=== PATIENT | male | born 1935 | race Caucasian/White ===

== ENCOUNTER 2017-02-07 09:10 | Day surgery (SDC) | payer MEDICARE, BC ==
[~2017-02-07 09:10] MED LIST: Buffered Lidocaine 0.9% SYRIN* 5 ML/SYR SYRINGE INTRADERM ONE
[2017-02-07] MEDS ORDERED: Buffered Lidocaine 0.9% SYRIN* 5 ML/SYR SYRINGE ONE (09:16)
[2017-02-07] MEDS ORDERED: ceFAZolin 2 GM PREMIX(*) 2 GM/50 ML BAG IVPB ONE (09:16)
[2017-02-07] MEDS ORDERED: Dexamethasone IV* 4 MG/ML 1 ML (4 MG) ONE (10:16)
[2017-02-07] MEDS ORDERED: Bupivacaine 0.25% SDV* 30 ML ONE (10:17)
[2017-02-07] MEDS ORDERED: Lidocaine 1% INJ* 10 MG/ML 30 ML SDV ONE (10:17)
[2017-02-07] MEDS ORDERED: Propofol* 10 MG/ML 20 ML BTL IV PUSH ONE ×2 (10:28→11:05)
[2017-02-07] MEDS ORDERED: fentaNYL* 50 MCG/ML 2 ML VIAL (100 MCG VIAL) ONE (10:28)
[2017-02-07 14:03] VITALS: BP 129/64
--- NOTE | 2017-02-08 16:15 | OP ---
DATE OF OPERATION: 02/07/17 [facility] DATE OF : 35. SURGEON: Dr. Willie Shanks. ANESTHESIOLOGIST: Ryan Lyman MD ANESTHESIA: MAC local. PRE-OP DIAGNOSIS: Osteomyelitis, left third toe. POST-OP DIAGNOSIS: Osteomyelitis, left third toe. OPERATIVE PROCEDURE: Amputation of distal portion of the left third toe. ESTIMATED BLOOD LOSS: Less than 10 cc. IV FLUIDS: LR 1000 cc. DRAINS: None. SPECIMENS: A combination of tissue culture as well as bone to pathology for microscopic examination. DESCRIPTION OF PROCEDURE: The patient was taken to the operating room, was placed in supine position. Time-out was called and OR team agreed. The left foot was then blocked with 4 cc of 1% lidocaine plain in a ring-block fashion at the base of the toe. The foot was then prepped and draped in a sterile manner. The left foot was exsanguinated with an Esmarch bandage and the cuff was then inflated to 250 mmHg. Attention was then paid to the distal tip of the left third toe. I then proceeded to make a fishmouth incision and just followed by sharp and blunt dissection down to bone. Once I got to the distal interphalangeal joint of the toe, the toe was amputated at that level. I also removed portions of the head of the middle phalanx and should be sent for pathological for microscopic examination as well. This completed the procedure. The toe was then irrigated with saline and closed in a layered anatomical fashion. The foot was then placed in dry sterile dressing. The patient tolerated the procedure well and discharged in stable condition. [id number]/[facility] #: [id number] [facility]
== END 2017-02-07 12:40 | disposition home or self-care (01) ==
LOC: OR 09:10
PROVIDERS: ATTEND Podiatrist
DX: M86.672 Other chronic osteomyelitis, left ankle and foot (principal); Z86.718 Personal history of other venous thrombosis and embolism; N18.3 Chronic kidney disease, stage 3 (moderate); I12.9 Hypertensive chronic kidney disease with stage 1 through stage 4 chronic kidney disease, or unspecified chronic kidney disease
CPT/HCPCS: 87070; 87073; 87077; 87186; 87205; J0690; J1100; J2001; J2704; J3010

== ENCOUNTER 2017-09-19 08:58 | Day surgery (SDC) | payer MEDICARE, BC ==
[~2017-09-19 08:58] MED LIST changes: +Famotidine IV* 10 MG/ML 2 ML (20 mg) IV ONE; +Sodium Citrate/Citric Acid* 15 ML UDC PO ONE
[2017-09-19] MEDS ORDERED: Sodium Citrate/Citric Acid* 15 ML UDC ONE (09:04)
[2017-09-19] MEDS ORDERED: Famotidine IV* 10 MG/ML 2 ML (20 mg) ONE (09:04)
[2017-09-19] MEDS ORDERED: ceFAZolin 2 GM in 100 MLS NS (*) BAG IVPB ONE (09:05)
[2017-09-19] MEDS ORDERED: Buffered Lidocaine 0.9% SYRIN* 5 ML/SYR SYRINGE ONE (09:05)
[2017-09-19] MEDS ORDERED: Lidocaine 2% PF * 5 ML VIAL ONE (09:24)
[2017-09-19] MEDS ORDERED: Propofol* 500 MG/50 ML BTL ONE (09:24)
[2017-09-19] MEDS ORDERED: fentaNYL* 50 MCG/ML 2 ML VIAL (100 MCG VIAL) ONE (09:38)
[2017-09-19] MEDS ORDERED: Midazolam* 1 MG/ML 2 ML VIAL (2 MG) ONE (09:38)
[2017-09-19] MEDS ORDERED: Bupivacaine 0.25% SDV* 30 ML ONE (09:59)
[2017-09-19] MEDS ORDERED: Lidocaine 1% INJ* 10 MG/ML 30 ML SDV ONE (09:59)
[2017-09-19] MEDS ORDERED: Dexamethasone IV* 4 MG/ML 1 ML (4 MG) ONE (09:59)
[2017-09-19] MEDS ORDERED: oxyCODONE/Acetamin 5/325 MG* TAB PO PRN (10:38)
[2017-09-19] MEDS ORDERED: Ibuprofen TAB* 600 MG PO PRN (10:38)
[2017-09-19] MEDS ORDERED: fentaNYL* 50 MCG/ML 2 ML VIAL (100 MCG VIAL) IV PRN (10:38)
[2017-09-19] MEDS ORDERED: PROCHLORPERAZINE INJ 5 MG/ML 2 ML VIAL IV PRN (10:38)
[2017-09-19] MEDS ORDERED: Ondansetron INJ* 2 MG/ML VIAL IV PRN (10:38)
[2017-09-19] MEDS ORDERED: HYDROmorphone INJ* 1 MG/ML CARPUJECT SYRINGE IV PRN (10:38)
[2017-09-19] MEDS ORDERED: oxyCODONE TAB* 5 MG TAB PO PRN (10:38)
[2017-09-19] MEDS ORDERED: Naloxone* 0.4 MG/ML 1 ML VIAL IV PRN (10:38)
[2017-09-19 12:24] VITALS: BP 147/78
--- NOTE | 2017-09-20 12:35 | OP ---
DATE OF OPERATION: 09/19/17 - [facility] DATE OF : 35 SURGEON: Willie Shanks DPM ANESTHESIA: MAC local. PRE-OP DIAGNOSIS: Left fourth toe ulcer and osteomyelitis and left fifth hammertoe. POST-OP DIAGNOSIS: Left fourth toe ulcer and osteomyelitis and left fifth hammertoe. OPERATIVE PROCEDURE: Partial amputation of the left fourth toe and arthroplasty of the left fifth toe. ESTIMATED BLOOD LOSS: Less than 10 cc. IV FLUIDS: LR 100 cc. DRAINS: None. SPECIMENS: Bone as well as distal amputation of the fourth toe. DESCRIPTION OF PROCEDURE: The patient was taken to the operating room and was placed in the supine position. Time-out was called and OR team agreed. The left foot was then blocked with 4 cc of 1% lidocaine plain to the base of the fourth toe and another 4 cc to the base of the fifth toe. The foot was then prepped and draped in a sterile manner. The left foot was then exsanguinated with an Esmarch bandage and the cuff was inflated to 250 mmHg. Attention was then paid initially to the left fourth toe where there was an ulcer as well as osteomyelitis of the distal phalanx of the fourth toe. I made a fishmouth incision and it was taken down to the soft tissue tendons and down to the bone at the level of the distal tip of the toe. This was followed by sharp and blunt dissection, starting from the epidermis, dermis, subcutaneous tissue down to deep fascia and tendon and down to the joint. I identified the distal interphalangeal joint. I dissected a little bit proximal to that approximately mid way through the middle phalanx. I then used a sagittal saw to remove the distal portion of the toe at the level of the middle portion of the middle phalanx. Once I was able to remove it, I irrigated the site and closed the fishmouth incision with a combination of absorbable Vicryl as well as 4-0 nylon. Attention was then paid to the left fifth toe where there was an adductovarus deformity with a hammertoe to that toe. I made a semi-elliptical wedge type of incision over the proximal interphalangeal joint area. I removed the wedge of skin. The wedge of skin was in a dorsal medial to plantar lateral direction. I went ahead and dissected down to the proximal interphalangeal joint. I went ahead and remove the head of the proximal phalanx. This created enough relaxation of the toe. I was able to reduce the hammertoe deformity as well as the adductovarus deformity. When I closed the semi-elliptical skin defect, I closed with a combination of a 3-0 Vicryl and 4-0 nylon. This part of the procedure was then deemed completed as well as the distal amputation. I injected the site postoperatively with 8 cc of 0.25% Marcaine plain as well as 8 mg of dexamethasone phosphate. I went ahead and deflated the cuff, placed the foot in a dry sterile dressing with good capillary refill on all toes of the left foot. The patient tolerated the procedure and anesthesia well and was taken to Recovery and later on discharged in stable condition. [id number]/[facility] #: [id number] [facility]
== END 2017-09-19 12:24 | disposition home or self-care (01) ==
LOC: OR 08:58
PROVIDERS: ATTEND Podiatrist
DX: M86.8X7 Other osteomyelitis, ankle and foot (principal); M20.42 Other hammer toe(s) (acquired), left foot; I45.10 Unspecified right bundle-branch block; Z87.891 Personal history of nicotine dependence; N18.3 Chronic kidney disease, stage 3 (moderate); M06.9 Rheumatoid arthritis, unspecified; Z85.46 Personal history of malignant neoplasm of prostate; G60.8 Other hereditary and idiopathic neuropathies; Z86.711 Personal history of pulmonary embolism; I12.9 Hypertensive chronic kidney disease with stage 1 through stage 4 chronic kidney disease, or unspecified chronic kidney disease
CPT/HCPCS: A9270-GY; J1100; J2250; J2704; J3010

== ENCOUNTER → 2018-09-22 16:47 | Emergency (ER) | payer MEDICARE, BC ==
--- NOTE | 2018-09-22 17:11 | ED ---
Dizziness - HPI Summary HPI Summary: This pt is an 83 y/o male presenting to [facility] via EMS for dizziness today. Pt reports last night he had runny nose and feels like he is coming on with a cold. He states today he was sitting down during a performance by a loud band when he suddenly felt "detached" and was lightheaded. EMS reports staff stated pt was unresponsive for about a minute. Pt notes somebody was talking to him but was unable to hear due to the noise, but was "aware all the time." He had his blood pressure taken and it was 190 systolic, notes normally he is 120/70. Currently denies dizziness. Denies chest pain, SOB, headache. 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 - History Of Current Complaint Chief Complaint: EDDizziness Stated Complaint: HIGH BP PER EMS Time Seen by Provider: 09/22/18 17:01 Hx Obtained From: Patient Onset/Duration: Resolved, Suddenly Timing: Hours Severity Initially: Moderate Severity Currently: None Character: Lightheaded, Dizzy Aggravating Factor(s): Nothing Alleviating Factor(s): Nothing Associated Signs And Symptoms: Negative: Nausea, Vomiting, Chest Pain, SOB, Fever, Chills, Other: - headache - Allergies/Home Medications Allergies/Adverse Reactions: Allergies Allergy/AdvReac Type Severity Reaction Status Date / Time quinapril Allergy Severe Hives Verified 09/19/17 09:28 Sulfa (Sulfonamide Allergy Intermediate Itching Verified 09/19/17 09:28 Antibiotics) Home Medications: Home Medications Furosemide TAB* [Lasix TAB*] 20 mg PO EVERY OTHER DAY 09/22/18 [History Confirmed 09/22/18] Ibuprofen TAB* [Motrin TAB* 600 MG] 600 mg PO Q6H PRN 09/22/18 [History Confirmed 09/22/18] Metoprolol Tartrate TAB* [Lopressor TAB*] 50 mg PO BID 09/22/18 [History Confirmed 09/22/18] Vit C/E/Zn/Coppr/Lutein/Zeaxan [Preservision Areds 2 Softgel] 2 cap PO DAILY 12/06 [History Confirmed 09/22/18] amLODIPine TAB* [Norvasc 5 mg TAB*] 5 mg PO DAILY 09/22/18 [History Confirmed ] PMH/Surg Hx/FS Hx/Imm Hx Cardiovascular History: Reports: Hx Hypertension - CONTROLLED WITH MEDS PT. STATES, Other Cardiovascular Problems/Disorders - STABLE ThoracicAA CARDIAC DISSECTING AORTIC ANEURYSM 2003 Respiratory History: Reports: Hx Pulmonary Embolism - 2003 SPONTANEOUS OCCURING AFTER BEING ON BEDREST FOR BACK History: Reports: Hx Kidney Stones - in s - none since then, Other Problems/Disorders - prostate cancer Musculoskeletal History: Reports: Hx Arthritis - RHEUMATOID 1979 DX, Other Musculoskeletal History - OSTEOMYLITIS MRSA IN LEFT THIRD TOE Sensory History: Reports: Hx Contacts or Glasses - READING Denies: Hx Cataracts, Hx Hearing Aid Opthamlomology History: Reports: Hx Contacts or Glasses - READING Denies: Hx Cataracts Neurological History: Reports: 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 T AND A A CHILD, inguinal bilateral hernia 1979 R and 1989 L Hx Anesthesia Reactions: No Infectious Disease History: No Infectious Disease History: Denies: Traveled Outside the [place] in Last 30 Days - Family History Known Family History: Positive: Hypertension - Social History Alcohol Use: None Substance Use Type: Reports: None Smoking Status (MU): Former Smoker Amount Used/How Often: smoked pipes and cigars for about a years in 1972 for 1 years Review of Systems Negative: Fever, Chills Positive: Nasal Discharge Negative: Chest Pain Negative: Shortness Of Breath Neurological: Other - POS: dizziness/lightheadedness Negative: Headache All Other Systems Reviewed And Are Negative: Yes Physical Exam - Summary Physical Exam Summary: VITAL SIGNS: Reviewed. GENERAL: Patient is a well-developed and nourished male who is lying comfortable in the stretcher. Patient is not in any acute respiratory distress. HEAD AND FACE: Normocephalic EYES: PERRLA, EOMI x 2. EARS: Hearing grossly intact. MOUTH: Oropharynx within normal limits. NECK: Supple, trachea is midline, no adenopathy, no JVD, no carotid bruit. CHEST: Symmetric, no tenderness at palpation LUNGS: Clear to auscultation bilaterally. No wheezing or crackles. CVS: Regular rate and rhythm, S1 and S2 present, no murmurs or gallops appreciated. ABDOMEN: Soft, non-tender. Bowel sounds are normal. No abdominal abnormal pulsations. EXTREMITIES: Full ROM in all major joints, no edema, no cyanosis or clubbing. NEURO: Alert and oriented x 3. No acute neurological deficits. Speech is normal and follows commands. SKIN: Dry and warm Triage Information Reviewed: Yes Vital Signs On Initial Exam: Initial Vitals Temp Pulse Resp BP Pulse Ox 99.4 F 78 16 165/80 76 09/22/18 16:53 09/22/18 16:53 09/22/18 16:53 09/22/18 16:53 09/22/18 16:53 Vital Signs Reviewed: Yes Diagnostics - Vital Signs Vital Signs Temp Pulse Resp BP Pulse Ox 09/22/18 16:53 99.4 F 78 16 165/80 76 - Laboratory Result Diagrams: 09/22/18 17:25 09/22/18 17:25 Lab Statement: Any lab studies that have been ordered have been reviewed, and results considered in the medical decision making process. - Radiology Chest XR Radiology Interpretation Completed By: Radiologist Summary of Radiographic Findings: IMPRESSION: Hyperinflated lung stoll. 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 No significant change is noted from September 07, 2003. Dr. Marcelino has reviewed this report. - CT Brain CT CT Interpretation Completed By: Radiologist Summary of CT Findings: IMPRESSION: No definite intracranial mass or hemorrhage is noted although mild cortical atrophy is noted. Dr. Marcelino has reviewed this report. - EKG 17:19 Cardiac Rate: NL - at 77 bpm EKG Rhythm: Sinus Rhythm EKG Comparison: No Significant Change - similar to prior EKG on 10/27/15. Summary of EKG Findings: No ST elevations. Re-Evaluation - Re-Evaluation First Eval Re-Evaluation Time: 18:39 Comment: I reviewed lab, CXR, and CT results with the pt. He will be discharged home. Dizzy Course/Dx - Course Assessment/Plan: Patient is an 83-year-old male who presents to the emergency department with a chief complaint of having one episode of dizziness. In the ED course the patient is completely asymptomatic. Test results without any significant abnormality except for glucose of 102, CRP is 13, BNP is 260 and the slight anemia. Chest x-ray impression: Hyperinflated lung stoll. 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 No significant change is noted from September 07, 2003. Head CT impression: No definite intracranial mass or hemorrhage is noted although mild cortical atrophy is noted. In the ED course the patient continues to be asymptomatic, and has no complaints. At this point I discussed all the findings and test results with the patient. He was instructed to return to the emergency room immediately if any of the symptoms return or worsens. He understands and agrees. Neurological exam before discharge: Patient is alert and oriented x 3. No acute neurological deficits. Patient vital signs are stable. Patient is to follow up with PCP in the next 2 3 days. They understand and agree. Plan of care was discussed with the patient and patient understands and agrees with the plan of care. All questions were answered at patient satisfaction. There were no further complaints or concerns. - Diagnoses Differential Diagnosis/HQI/PQRI: Benign Paroxysmal Positional Vertigo, Labyrinthitis, Meniere's Disease, Transient Ischemic Attack, Vasovagal Reaction Provider Diagnoses: Dizziness Discharge - Sign-Out/Discharge Documenting (check all that apply): Patient Departure - Discharge home Patient Received Moderate/Deep Sedation with Procedure: No - Discharge Plan Condition: Stable Disposition: HOME Patient Education Materials: Dizziness (ED) Referrals: Tim Santana MD [Primary Care Provider] - Additional Instructions: PLEASE FOLLOW UP WITH YOUR PRIMARY CARE PROVIDER WITHIN ONE WEEK FOR HIGH BLOOD PRESSURE NOTED TODAY RETURN TO THE ED FOR ANY WORSENING OR NEW SYMPTOMS. - Billing Disposition and Condition Condition: STABLE Disposition: Home - Attestation Statements Document Initiated by Serene: Yes Documenting Scribe: Lucia Reddy Provider For Whom Serene is Documenting (Include Credential): Panda Marcelino MD Scribe Attestation: Lucia Andersen scribed for Panda Marcelino MD on 09/23/18 at 1017. Scribe Documentation Reviewed: Yes Provider Attestation: The documentation as recorded by the Lucia booth accurately reflects the service I personally performed and the decisions made by me, Panda Marcelino MD Status of Scribe Document: Viewed
[2018-09-22 17:37] LABS: ABS Basophils 0 10^3/ul (0-0.2); ABS Eosinophils 0.1 10^3/ul (0-0.6); ABS Lymphocytes 0.7 10^3/ul (1.0-4.8); ABS Monocytes 0.9 10^3/ul (0-0.8); ABS Neutrophils 4.7 10^3/ul (1.5-7.7); ABS Nucleated RBC 0 10^3/ul; Eosinophil % 0.8 %; Hematocrit 39 % (42-52); Hemoglobin 12.9 g/dl (14.0-18.0); Lymphocyte % 10.9 %; Mean Corpuscular HGB Conc 33 g/dl (31-36); Mean Corpuscular Hemoglobin 27 pg (27-31); Mean Corpuscular Volume 82 fL (80-94); Mean Platelet Volume 8.4 fL (7.4-10.4); Nucleated Red Blood Cells % 0.1; Platelet Count 173 10^3/ul (150-450); Red Blood Count 4.78 10^6/ul (4.00-5.40); Red Cell Distribution Width 15 % (10.5-15); White Blood Count 6.4 10^3/ul (3.5-10.8)
[2018-09-22 17:56] LABS: Albumin/Globulin Ratio 1.3 (1-3); BUN/Creatinine Ratio 17.9 (8-20); C Reactive Protein 13.06 mg/L (<8.01); EGFR African American 75.8 (>60); EGFR Non-African American 62.6 (>60); Globulin 3.1 g/dL (2-4); Magnesium 1.9 mg/dL (1.9-2.7); Potassium 4.2 mmol/L (3.5-5.0); Total Bilirubin 0.6 mg/dL (0.2-1.0); Total Protein 7.1 g/dL (6.4-8.9)
[2018-09-22 18:18] LABS: TSH (Thyroid Stimulating Horm) 3.11 mcIU/mL (0.34-5.60)
[2018-09-22 18:35] VITALS: BP 147/70
== END | disposition home or self-care (01) ==
LOC: ED 16:47
DX: R42 Dizziness and giddiness (principal); Z88.2 Allergy status to sulfonamides; I10 Essential (primary) hypertension; Z86.711 Personal history of pulmonary embolism; Z87.891 Personal history of nicotine dependence; Z85.46 Personal history of malignant neoplasm of prostate; Z87.442 Personal history of urinary calculi
CPT/HCPCS: 36415; 70450; 71046; 80053; 82550; 83605; 83735; 83880; 84443; 84484; 85025; 86140; 93005; 99283

== ENCOUNTER 2019-07-13 10:16 | Emergency (ER) | payer MEDICARE, BC ==
[2019-07-13] MEDS ORDERED: NS 0.9% 1000 ML** 1,000 ML IV ONE (10:26)
--- NOTE | 2019-07-13 10:27 | ED ---
Palpitations / Dysrhythmia - HPI Summary HPI Summary: This pt is an 83 y/o male presenting to [facility] from [facility] c/o palpitations today. Pt reports that at around 0900 today he could feel palpitations, characterized as fast. Additionally notes having a "funny" feeling in his chest described as "wobbly" and fluttering. Denies any associated pain. Denies fever, chest pain, SOB. Pt reports today's symptoms are similar to his symptoms he had in January 2019 when he was admitted to [facility]. Pt is anticoagulated on Eliquis, he did not take it this morning. PMHx: in the early he used to get tachycardic when at rest but would resolve in 1-2 minutes on its own. His medications include metoprolol which he takes BID (last dose was this morning), amlodipine which he takes at night (last dose last night), and statin which he has been taking since mid January 2019. Denies tobacco, drug, or alcohol use. Allergic to Sulfa. Medications reviewed. Allergies noted. - History of Current Complaint Time Seen by Provider: 07/13/19 10:18 Hx Obtained From: Patient Onset/Duration: Lasting Hours, Still Present Severity Initially: Moderate Severity Currently: Moderate Character: Fast Aggravating: Nothing Alleviating: Nothing Associated Signs & Symptoms: Negative - Allergy/Home Medications Allergies/Adverse Reactions: Allergies Allergy/AdvReac Type Severity Reaction Status Date / Time quinapril Allergy Severe Hives Verified 09/19/17 09:28 Sulfa (Sulfonamide Allergy Intermediate Itching Verified 09/19/17 09:28 Antibiotics) Home Medications: Home Medications Apixaban* [Eliquis*] 5 mg PO BID 07/13/19 [History Confirmed 07/13/19] Ferrous Sulfate TAB* 325 mg PO DAILY 07/13/19 [History Confirmed 07/13/19] Ibuprofen TAB* [Motrin TAB* 600 MG] 600 mg PO Q6H PRN 07/13/19 [History Confirmed 07/13/19] PMH/Surg Hx/FS Hx/Imm Hx Endocrine/Hematology History: Denies: Hx Diabetes Cardiovascular History: Reports: Hx Hypertension - CONTROLLED WITH MEDS PT. STATES, Other Cardiovascular Problems/Disorders - STABLE ThoracicAA CARDIAC DISSECTING AORTIC ANEURYSM 2003 Denies: Hx Angina, Hx Coronary Artery Disease, Hx Hypercholesterolemia, Hx Myocardial Infarction, Hx Pacemaker/ICD Respiratory History: Reports: Hx Pulmonary Embolism - 2004 SPONTANEOUS OCCURING AFTER BEING ON BEDREST FOR BACK Denies: Hx Asthma, Hx Chronic Obstructive Pulmonary Disease (COPD) History: Reports: Hx Chronic Renal Failure, Hx Kidney Stones - in s - none since then, Other Problems/Disorders - prostate cancer Denies: Hx Renal Disease Musculoskeletal History: Reports: Hx Arthritis - RHEUMATOID 1979 DX, Other Musculoskeletal History - OSTEOMYLITIS MRSA IN LEFT THIRD TOE Sensory History: Reports: Hx Contacts or Glasses - READING Denies: Hx Cataracts, Hx Hearing Aid Opthamlomology History: Reports: Hx Contacts or Glasses - READING Denies: Hx Cataracts Neurological History: Reports: 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 T AND A A CHILD, inguinal bilateral hernia 1979 R and 1989 L Hx Anesthesia Reactions: No - Family History Known Family History: Positive: Hypertension - Social History Alcohol Use: None Substance Use Type: Reports: None Smoking Status (MU): Former Smoker Type: Cigars, Pipe Amount Used/How Often: smoked pipes and cigars for about a years in 1972 for 1 years Have You Smoked in the Last Year: No Review of Systems Negative: Fever Positive: Palpitations. Negative: Chest Pain Negative: Shortness Of Breath All Other Systems Reviewed And Are Negative: Yes Physical Exam - Summary Physical Exam Summary: Constitutional: Well-developed, Well-nourished, Alert. No acute distress. Skin: Warm, Dry HENT: Normocephalic; Atraumatic Eyes: Conjunctiva normal Neck: Musculoskeletal ROM normal neck. (-) JVD, (-) Stridor, (-) Tracheal deviation Cardio: Rhythm regular, rate is tachycardic in the 120s, Heart sounds normal; Intact distal pulses; The pedal pulses are 2+ and symmetric. Radial pulses are 2 + and symmetric. (-) Murmur Pulmonary/Chest wall: Effort normal. (-) Respiratory distress, (-) Wheezes, (-) Rales Abd: Soft, (-) tenderness, (-) Distension, (-) Guarding, (-) Rebound Musculoskeletal: (-) Edema Lymph: (-) Cervical adenopathy Neuro: Alert, Oriented x3 Psych: Mood and affect Normal Triage Information Reviewed: Yes Vital Signs On Initial Exam: Initial Vitals Temp Pulse Resp BP Pulse Ox 97.9 F 121 16 121/77 99 07/13/19 10:23 07/13/19 10:23 07/13/19 10:23 07/13/19 10:23 07/13/19 10:23 Vital Signs Reviewed: Yes Procedures - Sedation Patient Received Moderate/Deep Sedation with Procedure: No Diagnostics - Laboratory Result Diagrams: 07/13/19 10:29 07/13/19 10:29 Lab Statement: Any lab studies that have been ordered have been reviewed, and results considered in the medical decision making process. - CT Chest/Abdomen/Pelvis CTA CT Interpretation Completed By: Radiologist Summary of CT Findings: IMPRESSION: There is a single saccular type aneurysm of the posterior lateral aspect of the thoracic aorta which is essentially unchanged from previous exam measuring approximately 8.4 cm in length x 2.9 cm in width x 2.1 cm in greatest AP dimension which is essentially unchanged from previous exam. No evidence of abdominal aortic aneurysm is noted. Patient status post left inguinal hernia repair. No evidence of pulmonary embolus is noted. Multiple cortical renal cysts are noted. Suboptimal visualization of the aorta due to phase of contrast injection. Dr. Almanza has reviewed this report. - EKG 10:20 Cardiac Rate: Tachycardia - at 124 bpm Summary of EKG Findings: EKG at 1020 shows junctional tachycardia at a rate of 124 bpm. No obvious inferior STEMI. Known RBBB. 10:43 Cardiac Rate: NL - at 79 bpm EKG Rhythm: Sinus Rhythm Summary of EKG Findings: EKG at 1043 shows sinus rhythm at a rate of 79 bpm. RBBB. 1 PVC. No STEMI. Course/Dx - Course Course Of Treatment: Patient is here with tachycardia. Upon arrival, patient was in a junctional tachycardia. Patient does have a history of atrial flutter per him. Patient also has a history of chronic PE and thoracic aneurysm. Patient spontaneously converted just after getting back to his room. Patient had blood performed which is grossly unremarkable. Patient a CTA which showed no changes in his aneurysm and no PE. Patient's automotive collision repair instructor was called and he recommended outpatient treatment. - Diagnoses Provider Diagnoses: Atrial flutter, Aortic aneurysm - Physician Notifications Discussed Care Of Patient With: Joshua Barger Time Discussed With Above Provider: 12:33 Instructed by Provider To: Other - Discussed case with Dr. Barger, automotive collision repair instructor , who recommends discharge and outpatient follow up. Discharge ED - Sign-Out/Discharge Documenting (check all that apply): Patient Departure - Discharge home - Discharge Plan Condition: Stable Disposition: HOME Patient Education Materials: Atrial Flutter (ED) Referrals: Tim Santana MD [Primary Care Provider] - Joshua Barger MD [Medical Doctor] - Additional Instructions: PLEASE RETURN TO EMERGENCY DEPARTMENT FOR ANY CHEST PAIN, TROUBLE BREATHING, OR ANY CONCERNING SYMPTOMS. If you have similar symptoms in the future take an extra half dose of Metoprolol and wait 20 minutes to see if symptoms change. If symptoms don't resolve or change come back to the hospital. Please follow up with your primary care physician in 1-[address] days. Follow up with Dr. Barger, automotive collision repair instructor, as needed. - Billing Disposition and Condition Condition: STABLE Disposition: Home - Attestation Statements Document Initiated by Serene: Yes Documenting Scribe: Lucia Reddy Provider For Whom Serene is Documenting (Include Credential): Gabe Almanza MD Scribe Attestation: Lucia Andersen, scribed for Gabe Almanza MD on 07/13/19 at 1855. Scribe Documentation Reviewed: Yes Provider Attestation: The documentation as recorded by the Lucia booth accurately reflects the service I personally performed and the decisions made by , Gabe Almanza MD Status of Scribe Document: Viewed
[2019-07-13 10:38] LABS: ABS Eosinophils 0.2 10^3/ul (0-0.6); ABS Lymphocytes 1.2 10^3/ul (1.0-4.8); ABS Monocytes 0.5 10^3/ul (0-0.8); ABS Neutrophils 4.8 10^3/ul (1.5-7.7); Eosinophil % 2.9 %; Hematocrit 40 % (42-52); Hemoglobin 13.2 g/dL (14.0-18.0); Lymphocyte % 17.5 %; Mean Corpuscular HGB Conc 33 g/dL (31-36); Mean Corpuscular Hemoglobin 27 pg (27-31); Mean Corpuscular Volume 82 fL (80-94); Mean Platelet Volume 8.7 fL (7.4-10.4); Platelet Count 200 10^3/uL (150-450); Red Blood Count 4.83 10^6 /uL (4.18-5.48); Red Cell Distribution Width 16 % (10-15); White Blood Count 6.7 10^3/uL (3.5-10.8)
[2019-07-13 11:07] LABS: Albumin 3.9 g/dL (3.2-5.2); Albumin/Globulin Ratio 1.2 (1-3); BUN/Creatinine Ratio 21.3 (8-20); Calcium 9.4 mg/dL (8.6-10.3); EGFR African American 68.6 (>60); EGFR Non-African American 56.7 (>60); Globulin 3.2 g/dL (2-4); Magnesium 1.9 mg/dL (1.9-2.7); Potassium 4.2 mmol/L (3.5-5.0); Total Bilirubin 0.8 mg/dL (0.2-1.0); Total Protein 7.1 g/dL (6.4-8.9); Troponin I 0.01 ng/mL (<0.03)
[2019-07-13] MEDS ORDERED: Iodixanol* (CONTRAST) 320 MG/ML 100 ML SDV IV ONE (11:19)
[2019-07-13 12:44] VITALS: BP 123/73
== END 2019-07-13 12:43 | disposition home or self-care (01) ==
LOC: ED 10:16
DX: I48.92 Unspecified atrial flutter (principal); I71.9 Aortic aneurysm of unspecified site, without rupture; I45.10 Unspecified right bundle-branch block; Z87.891 Personal history of nicotine dependence; Z88.2 Allergy status to sulfonamides; Z86.711 Personal history of pulmonary embolism; I12.9 Hypertensive chronic kidney disease with stage 1 through stage 4 chronic kidney disease, or unspecified chronic kidney disease; N18.9 Chronic kidney disease, unspecified; Z85.46 Personal history of malignant neoplasm of prostate; G60.9 Hereditary and idiopathic neuropathy, unspecified
CPT/HCPCS: 36415; 71275; 74174; 80053; 83735; 83880; 84484; 85025; 85379; 93005; 96360; 99283; Q9967

== ENCOUNTER 2022-08-11 03:38 | Inpatient (IN) ==
[2022-08-11] MEDS ORDERED: Lactated Ringers 1000 ml BAG 1,000 ML IV ONE (03:42)
[2022-08-11 04:19] LABS: ABS Eosinophils 0.2 10^3/ul (0-0.6); ABS Lymphocytes 1.1 10^3/ul (1.0-4.8); ABS Monocytes 0.5 10^3/ul (0-0.8); ABS Neutrophils 4.5 10^3/ul (1.5-7.7); Eosinophil % 3.4 %; Hematocrit 40 % (42-52); Lymphocyte % 17.6 %; Mean Corpuscular HGB Conc 33 g/dL (31-36); Mean Corpuscular Hemoglobin 27 pg (27-31); Mean Corpuscular Volume 82 fL (80-94); Mean Platelet Volume 8.3 fL (7.4-10.4); Platelet Count 180 10^3/uL (150-450); Red Blood Count 4.82 10^6 /uL (4.18-5.48); Red Cell Distribution Width 16 % (10-15); White Blood Count 6.4 10^3/uL (3.5-10.8)
[2022-08-11 04:19] LABS: Urine Appearance Clear; Urine Bilirubin Negative (Negative); Urine Blood Negative (Negative); Urine Color Yellow; Urine Glucose Negative (Negative); Urine Ketones Negative (Negative); Urine Nitrite Negative (Negative); Urine Protein Negative (Negative); Urine Specific Gravity 1.016 (1.002-1.030); Urine Urobilinogen Negative (Negative)
[2022-08-11 04:23] LABS: INR 1.15 (0.88-1.18)
[2022-08-11 04:35] LABS: Albumin/Globulin Ratio 1.4 (1-3); C Reactive Protein 1.26 mg/L (<8.01); Calcium 9.1 mg/dL (8.6-10.3); Creatinine, Serum 1.14 mg/dL (0.67-1.17); Globulin 2.8 g/dL (2-4); Total Bilirubin 0.6 mg/dL (0.2-1.0); Total Protein 6.8 g/dL (6.4-8.9); eGFR CKD-EPI 62.6 (>60)
[2022-08-11] MEDS ORDERED: Iodixanol (CONTRAST) 320 MG/ML 100 ML SDV IV ONE (06:29)
[2022-08-11] MEDS ORDERED: Ondansetron 4 mg VIAL 2 MG/ML 2 ml VIAL IV ONE (07:27)
[2022-08-11] MEDS ORDERED: Prothrombin Complex Conc. DOSE = Units Factor IX (nine) IV SLOW PU ONE (09:16)
[2022-08-11] MEDS ORDERED: fentaNYL 250 mcg/5 ml 50 MCG/ML 5 ml VIAL (250 MCG) ONE (10:17)
[2022-08-11] MEDS ORDERED: Lidocaine 2% PF 5 ML VIAL ONE (10:18)
[2022-08-11] MEDS ORDERED: Propofol 10 MG/ML 20 ML BTL ONE ×3 (10:18→14:27)
[2022-08-11] MEDS ORDERED: Rocuronium 50 mg VIAL 10 mg/ml 5 ml VIAL (50 mg) ONE ×2 (10:18→12:25)
[2022-08-11] MEDS ORDERED: Etomidate 20 mg/10 ml 2 MG/ML 10 ml VIAL ONE (10:19)
[2022-08-11] MEDS ORDERED: ceFAZolin 2 GM PREMIX 2 GM/50 ML BAG ONE (10:34)
[2022-08-11] MEDS ORDERED: Succinylcholine 200 mg VIAL 20 mg/ml 10 ml VIAL (200 mg) ONE (11:20)
[2022-08-11] MEDS ORDERED: Acetaminophen IV 1 GM/100ML 1,000 MG/100 ML BAG IV ONE (11:54)
[2022-08-11] MEDS ORDERED: Dexamethasone IV 4 MG/ML VIAL 1 ml VIAL ONE (11:57)
[2022-08-11] MEDS ORDERED: Ondansetron 4 mg VIAL 2 MG/ML 2 ml VIAL ONE (14:44)
[2022-08-11] MEDS ORDERED: Ondansetron 4 mg VIAL 2 MG/ML 2 ml VIAL IV PRN ×2 (14:53→15:15)
[2022-08-11] MEDS ORDERED: fentaNYL 100 mcg/2 ml 50 MCG/ML VIAL IV PRN (14:53)
[2022-08-11] MEDS ORDERED: Naloxone 0.4 mg VIAL 0.4 mg/ml 1 ml VIAL IV PRN (14:53)
[2022-08-11] MEDS ORDERED: Morphine 2 MG/ML SYRINGE IV PRN (15:29)
[2022-08-11 17:23] LABS: Hematocrit 39 % (42-52); Hemoglobin 12.5 g/dL (14.0-18.0); Mean Corpuscular HGB Conc 32 g/dL (31-36); Mean Corpuscular Hemoglobin 27 pg (27-31); Mean Corpuscular Volume 84 fL (80-94); Mean Platelet Volume 8.6 fL (7.4-10.4); Platelet Count 220 10^3/uL (150-450); Red Blood Count 4.69 10^6 /uL (4.18-5.48); Red Cell Distribution Width 16 % (10-15); White Blood Count 13.6 10^3/uL (3.5-10.8)
[2022-08-11] MEDS: Lactated Ringers 1000 ml BAG 1,000 ML IV SCH (17:37)
[2022-08-11 17:46] LABS: Albumin 3.7 g/dL (3.2-5.2); Albumin/Globulin Ratio 1.5 (1-3); Calcium 8.5 mg/dL (8.6-10.3); Creatinine, Serum 1.13 mg/dL (0.67-1.17); Globulin 2.4 g/dL (2-4); Potassium 4.1 mmol/L (3.5-5.0); Total Bilirubin 1.1 mg/dL (0.2-1.0); Total Protein 6.1 g/dL (6.4-8.9); eGFR CKD-EPI 63.3 (>60)
[2022-08-11] MEDS ORDERED: Levalbuterol 1.25MG/0.5ML NEB.SOL INH ONE (17:49)
[2022-08-11 17:55] LABS: ABS Lymphocytes 0.8 10^3/ul (1.0-4.8); ABS Monocytes 0.8 10^3/ul (0-0.8); ABS Neutrophils 11.9 10^3/ul (1.5-7.7); Eosinophil % 0.1 %; Lymphocyte % 6.1 %
[2022-08-11 20:24] LABS: Hematocrit 36 % (42-52); Hemoglobin 11.5 g/dL (14.0-18.0)
[2022-08-11] MEDS: Piperacillin/Tazobactam VIAL 3.375 GM in NS 0.9% 100 ml BAG 100 ML IVPB SCH (20:38)
[2022-08-12 02:07] LABS: Hematocrit 34 % (42-52); Hemoglobin 10.6 g/dL (14.0-18.0)
[2022-08-12] MEDS: Lactated Ringers 1000 ml BAG 1,000 ML IV SCH ×2 (03:45→11:52)
[2022-08-12] MEDS: Piperacillin/Tazobactam VIAL 3.375 GM in NS 0.9% 100 ml BAG 100 ML IVPB SCH ×3 (05:18→21:11)
[2022-08-12 05:31] LABS: Hematocrit 31 % (42-52); Hemoglobin 9.8 g/dL (14.0-18.0); Mean Corpuscular HGB Conc 32 g/dL (31-36); Mean Corpuscular Hemoglobin 26 pg (27-31); Mean Corpuscular Volume 82 fL (80-94); Mean Platelet Volume 8.7 fL (7.4-10.4); Platelet Count 188 10^3/uL (150-450); Red Blood Count 3.73 10^6 /uL (4.18-5.48); Red Cell Distribution Width 16 % (10-15); White Blood Count 12.4 10^3/uL (3.5-10.8)
[2022-08-12 05:54] LABS: ABS Lymphocytes 0.8 10^3/ul (1.0-4.8); ABS Monocytes 0.9 10^3/ul (0-0.8); ABS Neutrophils 10.7 10^3/ul (1.5-7.7); Eosinophil % 0.1 %; Lymphocyte % 6.2 %
[2022-08-12 06:13] LABS: Calcium 7.8 mg/dL (8.6-10.3); Creatinine, Serum 1.2 mg/dL (0.67-1.17); Magnesium 1.7 mg/dL (1.9-2.7); Potassium 4.8 mmol/L (3.5-5.0); eGFR CKD-EPI 58.9 (>60)
[2022-08-12 14:14] LABS: Hematocrit 32 % (42-52); Hemoglobin 10.2 g/dL (14.0-18.0)
[2022-08-12] MEDS ORDERED: NS 0.9% 1,000 ML IV SCH (16:00)
[2022-08-12] MEDS: D5W 1/2 NS 1000 ml BAG 1,000 ML IV SCH (17:44)
[2022-08-13] MEDS: Piperacillin/Tazobactam VIAL 3.375 GM in NS 0.9% 100 ml BAG 100 ML IVPB SCH ×3 (03:26→21:17)
[2022-08-13 06:38] LABS: ABS Lymphocytes 0.7 10^3/ul (1.0-4.8); ABS Monocytes 0.8 10^3/ul (0-0.8); ABS Neutrophils 8.3 10^3/ul (1.5-7.7); Eosinophil % 0.3 %; Hematocrit 28 % (42-52); Hemoglobin 9.7 g/dL (14.0-18.0); Lymphocyte % 7.2 %; Mean Corpuscular HGB Conc 35 g/dL (31-36); Mean Corpuscular Hemoglobin 28 pg (27-31); Mean Corpuscular Volume 82 fL (80-94); Mean Platelet Volume 9.2 fL (7.4-10.4); Platelet Count 159 10^3/uL (150-450); Red Blood Count 3.41 10^6 /uL (4.18-5.48); Red Cell Distribution Width 16 % (10-15); White Blood Count 9.8 10^3/uL (3.5-10.8)
[2022-08-13 06:56] LABS: Calcium 7.9 mg/dL (8.6-10.3); Creatinine, Serum 1.09 mg/dL (0.67-1.17); Magnesium 1.9 mg/dL (1.9-2.7); Potassium 3.9 mmol/L (3.5-5.0); eGFR CKD-EPI 66.1 (>60)
[2022-08-13] MEDS: D5W 1/2 NS 1000 ml BAG 1,000 ML IV SCH (12:11)
[2022-08-13] MEDS ORDERED: Acetaminophen IV 1 GM/100ML 1,000 MG/100 ML BAG IV PRN (16:00)
[2022-08-13] MEDS ORDERED: D5W 1/2 NS 1000 ml BAG 1,000 ML IV SCH (16:00)
[2022-08-14] MEDS: Piperacillin/Tazobactam VIAL 3.375 GM in NS 0.9% 100 ml BAG 100 ML IVPB SCH ×3 (04:30→20:53)
[2022-08-14 06:00] LABS: ABS Eosinophils 0.3 10^3/ul (0-0.6); ABS Lymphocytes 0.8 10^3/ul (1.0-4.8); ABS Monocytes 0.7 10^3/ul (0-0.8); ABS Neutrophils 6.6 10^3/ul (1.5-7.7); Hematocrit 26 % (42-52); Hemoglobin 8.4 g/dL (14.0-18.0); Lymphocyte % 9.8 %; Mean Corpuscular HGB Conc 33 g/dL (31-36); Mean Corpuscular Hemoglobin 27 pg (27-31); Mean Corpuscular Volume 83 fL (80-94); Mean Platelet Volume 9.1 fL (7.4-10.4); Platelet Count 150 10^3/uL (150-450); Red Blood Count 3.09 10^6 /uL (4.18-5.48); Red Cell Distribution Width 16 % (10-15); White Blood Count 8.5 10^3/uL (3.5-10.8)
[2022-08-14 06:08] LABS: Calcium 7.2 mg/dL (8.6-10.3); Creatinine, Serum 0.97 mg/dL (0.67-1.17); Magnesium 1.9 mg/dL (1.9-2.7); Potassium 3.6 mmol/L (3.5-5.0)
[2022-08-14] MEDS: Potassium Chlor 20 meq TAB.ER PO SCH ×2 (09:31→20:54)
[2022-08-14 14:11] LABS: Hematocrit 27 % (42-52); Hemoglobin 9.1 g/dL (14.0-18.0)
[2022-08-15] MEDS: Piperacillin/Tazobactam VIAL 3.375 GM in NS 0.9% 100 ml BAG 100 ML IVPB SCH (03:40)
[2022-08-15 06:01] LABS: ABS Eosinophils 0.4 10^3/ul (0-0.6); ABS Lymphocytes 0.9 10^3/ul (1.0-4.8); ABS Monocytes 0.6 10^3/ul (0-0.8); ABS Neutrophils 5.5 10^3/ul (1.5-7.7); Eosinophil % 5.5 %; Hematocrit 26 % (42-52); Hemoglobin 8.6 g/dL (14.0-18.0); Lymphocyte % 12.1 %; Mean Corpuscular HGB Conc 33 g/dL (31-36); Mean Corpuscular Hemoglobin 27 pg (27-31); Mean Corpuscular Volume 83 fL (80-94); Mean Platelet Volume 8.9 fL (7.4-10.4); Platelet Count 173 10^3/uL (150-450); Red Blood Count 3.17 10^6 /uL (4.18-5.48); Red Cell Distribution Width 16 % (10-15); White Blood Count 7.4 10^3/uL (3.5-10.8)
[2022-08-15] MEDS ORDERED: Polyethylene Glycol 3350 17 GM PACKET PO PRN (07:39)
[2022-08-15] MEDS ORDERED: Senna TAB 8.6 mg TAB PO PRN (07:40)
[2022-08-15] MEDS: Potassium Chlor 20 meq TAB.ER PO SCH ×2 (08:39→22:12)
[2022-08-16] MEDS ORDERED: Ondansetron ODT 4 mg TAB 4 MG TAB SL PRN (03:24)
[2022-08-16 06:26] LABS: Hematocrit 29 % (42-52); Hemoglobin 9.4 g/dL (14.0-18.0)
[2022-08-16] MEDS ORDERED: Ondansetron ODT 4 mg TAB 4 MG TAB SL ONE (08:01)
[2022-08-16] MEDS: Potassium Chlor 20 meq TAB.ER PO SCH ×2 (11:10→21:53)
[2022-08-16] MEDS: Potassium Chloride LIQUID 20 MEQ/15 ML LIQUID PO SCH (21:10)
[2022-08-17] MEDS: Potassium Chloride LIQUID 20 MEQ/15 ML LIQUID PO SCH (10:17)
[2022-08-17 16:04] VITALS: BP 129/61
== END 2022-08-17 16:25 | DRG 329 ==
LOC: ED 03:38 → OR 10:40 → ICU 17:28 → SSU 08-12 13:56
PROVIDERS: ADMIT Surgery; ATTEND Surgery